=== PATIENT | male | born 1970 | race Caucasian/White ===

== ENCOUNTER 2020-09-20 07:40 | Outpatient (CLI) | payer OTHER, SELFPAY ==
--- NOTE | ~2020-09-20 | XR_ITS ---
EXAMINATION: XR shoulder RT min 2V EXAM DATE: 09/20/2020 08:06 INDICATION: Right shoulder injury, strain, pain. TECHNIQUE: The following right shoulder projections obtained: frontal projection with internal rotati on, frontal projection with external rotation, Grashey, and scapular Y view and axillary (5 views). There is no prior study for comparison. FINDINGS: Calcification superior to the greater tuberosity consistent with calcific tendinosis of t he biceps tendon or rotator cuff. There is mild glenohumeral and acromioclavicular joint primary oste oarthritis. There are no acute fractures or dislocations identified. There is no subcutaneous gas. The soft tissue is unremarkable. There are no radiopaque foreign bodies. IMPRESSION: 1. Right shoulder exam without acute osseous findings. 2. Mild right shoulder osteoarthritis. 3. Calcific tendinosis. Reviewed, dictated and finalized at location A.
== END 2020-09-20 07:41 | disposition home or self-care (01) ==
PROVIDERS: PCP Family Medicine; Visit Provider Family Medicine
DX: M19.011 Primary osteoarthritis, right shoulder (principal)
CPT/HCPCS: 73030

== ENCOUNTER 2024-05-12 09:00 | Outpatient (RCR) | payer OTHER, SELFPAY ==
--- NOTE | 2024-04-20 09:57 | OPREHPOC ---
Outpatient Therapy Plan of Care This is a Multidisciplinary Plan of Care that may contain components documented by all disciplines (PT, OT, and ST.) PT Problem 1 PT Problem #1 Knowledge Deficit PT Goal 1 Goal / Goal Update *indep with HEP Target Visit 5 PT Problem 2 PT Problem #2 Pain PT Goal 1 Goal / Goal Update 1* pt report pain at worst of 10 2* self assessment with LE functional scale rating of 10% limitation in activity level Target Visit 5 PT Problem 3 PT Problem #3 Impaired Strength PT Goal 1 Goal / Goal Update increase strength of L hip and knee to improve patellar tracking 1* pt perform mat exercises with 3# ankle weight x 15 reps Target Visit 5 PT Problem 4 PT Problem #4 Impaired Flexibility PT Goal 1 Goal / Goal Update increase L hip flexibility to improve patellar tracking 1* supine piriformis stretch without reports of tightness 2* side lying on R- L ITB stretch 20' with leg behind body Target Visit 5
--- NOTE | 2024-04-20 09:57 | PTOPEVAL1 ---
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 He reports chronic, intermittent pain with history of patellar subluxation 2x. Also has R knee pain. LE functional scale self rating of 18% limitation in activity level. He is active and walks about 1 hour for fitness. With the evaluation; he has good flexibility of hamstring & anterior hip-quad muscles, with tightness over piriformis and ITB; slight weakness over hip adduction; lateral patellar placement with grinding; Skilled PT services are indicated for therapeutic exercises, to increase hip flexibility and strength, to improve patellar tracking and positioning, with education for HEP. Plan of Care Interventions Hot Pack/Cold Pack,Manual Therapy,Neuro Re- education,Patient Education,Therapeutic Activities,Therapeutic Exercise,Ultrasound,Other Other Interventions taping PT Services Indicated Yes Treatment Frequency and 1-2x/wk for 5 visits Duration These treatments will address the objective and functional deficits as defined above. The patient will be advanced safely and appropriately in order for the patient to progress towards his/her prior level of function. Additional exercises will be introduced and as well as a comprehensive home exercise program upon discharge, if needed, ?to ensure carryover of functional gains achieved in the clinic. This treatment plan has been reviewed and agreement upon by the patient.
--- NOTE | 2024-05-12 09:52 | PTOPDC ---
Assessment and note entered by Zoe Starks, PT Discharge Report Assessment Status Discharge ICD-10 Condition Codes (PT) Pain in left knee M25.562 Onset Feb 2024 Subjective Information knee no longer really have any pain, but sometimes is stiff; have been doing the exercises; Reported Pain Level Pain Score Self Report Additional Pain Score Comments pain range in the past week 0-2/10-- stiff, tight but not pain or hurt Assessment PT Clinical Summary Rachid has received 5 PT sessions. Compared to the initial evaluation: pain rating same at 0-2/10; walking sometimes increases the knee stiffness, tightness; self assessment with LE functional scale rating from 18% to 16% limitation in activity level; tenderness and spasms over medial-distal hamstring; increase strength of L hip and knee with mat and standing exercises; education completed for HEP and posture The goals were partially met. Discharge PT services. He is to continue with his HEP. Plan of Care PT Services Indicated No
== END 2024-05-12 11:17 | disposition home or self-care (01) ==
LOC: ANHPT 09:00
PROVIDERS: PCP Physician Assistant; Visit Provider Physician Assistant
DX: M25.562 Pain in left knee (principal)
CPT/HCPCS: 97110; 97161; 97530

== ENCOUNTER 2025-02-20 08:03 | Outpatient (CLI) | payer OTHER, SELFPAY ==
--- NOTE | ~2025-02-20 | XR_ITS ---
EXAMINATION: XR shoulder RT min 2V DATE: 02/20/2025 08:23 INDICATION: Pain in joint of right shoulder TECHNIQUE: 4 images of the right shoulder were obtained. COMPARISON: None FINDINGS: Bones appear osteopenic. Moderate joint space narrowing in the right acromioclavicular joint. No fracture. No dislocation. There are a few radiopaque densities in the subdeltoid and subacromial bursa, the largest grossly measures 1.5 cm in greatest dimension which may represent calcium from calcific te ndinitis. IMPRESSION: 1. No fracture. No dislocation. 2. Moderate joint space narrowing in the right acromioclavicular joint. 3.There are a few radiopaque densities in the subdeltoid and subacromial bursa, the largest grossly measures 1.5 cm in greatest dimension which may represent calcium from calcific tendinitis. If symptoms persist or worsen, consider a short-term follow-up study or MRI imaging for further assessment. Reviewed, dictated and finalized at location Q. IMPRESSION: 1. No fracture. No dislocation. 2. Moderate joint space narrowing in the right acromioclavicular joint. 3.There are a few radiopaque densities in the subdeltoid and subacromial bursa, the largest grossly measures 1.5 cm in greatest dimension which may represent calcium from calcific tendinitis. If symptoms persist or worsen, consider a short-term follow-up study or MRI marge ging for further assessment.
--- OUTSIDE RECORDS SUMMARY | 2025-02-20 08:08 | XMS_ITS | Encounter Summary ---
Author Organization [facility] Address [address] [place] [address] Phone Care Team Providers Care Insurance Account Specialist Name Role Phone Twila Arevalo DO Unavailable Elsa Howell Primary Care Provider Encounter Details Date Type Department Care Team (Latest Contact Info) Description 07/23/2023 Orders Only [facility] Scanning, Provider Social History Tobacco Use Types Packs/Day Years Used Date Smoking Tobacco: Never Smokeless Tobacco: Never Alcohol Use Standard Drinks/Week Comments Yes 0 (1 standard drink = 0.6 oz pur e alcohol) 1 beverage every 3 months Personal Safety Answer Date Recorded Have you ever been in or are you currently in a harmful physical or emotional relationship or is someone making you feel afraid or unsafe? Denies 10/09/2022 Sex and Gender Information Value Date Recorded Sex Assigned at Male 02/25/2020 10:04 AM CDT Legal Sex Male 12:36 PM CODING SPECIALIST HOME HEALTH Gender Identity Transgender Male 11/20/2019 10:2 1 AM CDT Sexual Orientation Straight 09/25/2019 11 :52 AM CDT documented as of this encounter Plan of Treatment Not on file documented as of this encounter Procedures Procedure Name Priority Date/Time Associated Diagnosis Comments SCAN - LABS 07/23/2023 documented in this encounter Results * SCAN - LABS (07/23/2023) us Provider Scanning Final Result documented in this encounter Visit Diagnoses Not on filedocumented in this encounter Care Teams Insurance Account Specialist Relationship Specialty Start Date End Date Elsa Howell PA [address] [place] [phone] PCP - General Physician Manager Ethics 10/09/22 Twila Arevalo DO [address] [facility] [address] [place] [address] Consulting Physician Endocrinology Diabetes & Metabolism 02/25/20 documented as of this encounter
--- OUTSIDE RECORDS SUMMARY | 2025-02-20 08:08 | XMS_ITS | Clinical Summary ---
Author Organization [facility] Address [address] [place] [address] Care Team Providers Care Water Rights Specialist Name Role Phone Twila Arevalo DO Unavailable [phone] Elsa Howell Primary Care Provider [phone] Allergies No known active allergies Medications multivitamin tabletIndications:V itamin Deficiency Prevention daily. 06/14/19 12 Active aspirin 81 mg chewable tablet Take 1 tablet (81 mg total) by mouth daily Active cetirizine (ZyrTEC) 10 mg tablet Take 1 tablet (10 mg total) by mouth daily Active CALCIUM CARBONATE-VITAMIN D3 ORAL Take 600 mg by mouth daily Active cholecalciferol, vitamin D3, (VITAMIN D3 ORAL) Take 1,000 Units by mouth daily Active lisinopril-hydroCHL OROthiazide (ZESTORETIC) 20-25 mg per tablet TAKE 1 TABLET BY MOUTH DAILY 90 tablet 1 03/17/20 20 Active cyanocobalamin, vitamin B-12, (VITAMIN B-12 ORAL) Take by mouth Active magnesium gluconate 200 mg tabletIndications:h ypomagnesemia Take 1 tablet (200 mg total) by mouth daily Active syringe with needle (BD Luer-Lauryn Syringe) 3 mL 21 gauge x 1 syringe USE TO INJECT TESTOSTERONE EVERY 2 WEEKS 4 each 4 04/06/20 24 Active rosuvastatin (CRESTOR) 40 mg tablet Take 1 tablet (40 mg total) by mouth daily 90 tablet 1 08/15/19 25 026 Active testosterone cypionate (DEPO-TESTOTERONE) 200 mg/mL injection Administer 0.5ml in the muscle every 14 days 2 mL 4 08/19/19 25 Active ezetimibe (ZETIA) 10 mg tabletIndications:M ixed hyperlipidemia Take 1 tablet (10 mg total) by mouth daily 90 tablet 1 10/27/19 25 026 Active sapropterin (KUVAN) 100 mg disintegrating tabletIndications:C lassical phenylketonuria Take 17 tablets (1,700 mg total) by mouth daily 510 tablet 11 12/08/19 25 026 Active metFORMIN XR (GLUCOPHAGE XR) 500 mg 24 hr tablet TAKE 2 TABLETS BY MOUTH TWICE DAILY 120 tablet 4 01/07/20 25 Active Active Problems Problem Noted Date Diagnosed Date [id number] transgender person 01/27/2024 Encounter for screening for malignant neoplasm o f colon 07/27/2020 Internal hemorrhoids 07/26/2020 Prediabetes 07/11/2020 Obesity with body mass index 30 or greater 07/11 Hyperlipidemia 07/11/2020 Hypertensive disorder 06/30/2020 Scar condition and fibrosis of skin 09/25/2011 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 Stricture, urethra 05/23/2007 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 Encounters Date Type Department Care Team Description 01/14/2025 Results Follow-Up [facility] [address] [place] [address] [place] [address] Phenylalanine 01/13/2025 Orders Only [facility] Scanning, Provider 01/06/2025 Orders Only [facility] Endocrinology Metabolism and Lipid [address] [place] [address] Advanced Medicine 13[address] [place] [address] [place] [address] Larisa Pagan RMA 12/04/2024 4:15 PM CDT Lab [facility] [address] [place] [phone] Classical phenylketonuria 12/04/2024 3:00 PM CDT Office Visit [facility] [address] [place] [address] Advanced Medicine 5th [place] [address] [place] [address] Benita Montes NP Classical phenylketonuria (Primary Dx) 12/04/2024 Telephone [facility] Medicine Pediatric Genetics [facility] [address]nd [place] [address] [place] [address] Benita Montes NP Refill from Last 3 Months Immunizations Immunization Administration Dates Next Due Moderna SARS-CoV-2 Monovalent Vaccination (12+ Y RS) 02/15/2022 Surgical History Surgery Date Site/Laterality Comments [place] CYSTOURETHROSCOPY W/INTERNAL URETHROTOMY Cystoscopy With Internal Urethrotomy, Direct Vision - (Added by TW Conv) [place] URETHROPLASTY 1 STG RECNS T MALE ANTERIOR URETHRA Urethroplasty One-Stage Reconstr Of Male Anterior Urethra - (Added by TW Conv) [place] EXC MUCOSA VESTIBULE MOUT H DON GRF Excision Of Mucosa Of Vestibule Of Mouth For Donor Graft - urethroplasty (Added by TW Conv) MASTECTOMY 06/10/1999 - 06/09/2000 Bilateral TOTAL VAGINAL HYSTERECTOMY 06/10/2005 - 06/09/2006 Medical History Medical History Date Comments Hypertension Gender identity disorder Low HDL (under 40) Hypertension Allergic rhinitis Family History Medical History Relation Name Comments No Known Problems Brother Heart disease Father Hyperlipidemia Father Hypertension Father Pancreatic cancer Father Family his tory of pancreatic cancer - (Added by TW Conv)/Family history of pancreatic cancer - (Added by TW Conv) Stroke Mother Relation Name Status Comments Brother Alive Father Mother Social History Tobacco Use Types Packs/Day Years Used Date Smoking Tobacco: Never Smokeless Tobacco: Never Tobacco Cessation:Counseling Given: Not Answered Alcohol Use Standard Drinks/Week Comments Yes 0 [...] AM CDT Legal Sex Male 12:36 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 Gender Identity Transgender Male 11/20/2019 10:2 1 AM CDT Sexual Orientation Straight 09/25/2019 11 :52 AM CDT Obstetrics History Last Filed Vital Signs Vital Sign Reading Time Taken Comments Blood Pressure 97/72 12/04/2024 2:54 PM CDT Pulse 90 12/04/2024 2:54 PM CDT Temperature 36.8 C (98.3 F) 12/04/2024 2:54 PM CDT Respiratory Rate 13 10/09/2022 12:30 PM CDT Oxygen Saturation 100% 07/22/2023 7:39 AM TUBE TEST TECHNICIAN Inhaled Oxygen Concentration - - Weight 81.6 kg (180 lb) 12/04/2024 2:54 PM CDT Height 167.6 cm (5' 6) 12/04/2024 2:54 PM CDT Body Mass Index 29.05 12/04/2024 2:54 PM CDT Plan of Treatment Health Maintenance Due Date Last Done Comments Colon Cancer Screening-Colonoscopy 1972 Depression Screening 1972 Hepatitis C Screening 1972 Prostate Cancer Screening-PSA 1972 Hepatitis B Screening 1990 Regular Well Visit/Exam 18-64 1990 Zoster Vaccine (1 of 2) 2022 Covid-19 Vaccine ( season) 2025 02/15/2022, 02/15/2022, 05/02/2021, Additional history exists Influenza Vaccine (#1) 2025 3, 03/19/2021, 02/20/2020, Additional history exists DTaP/Tdap/Td Vaccine (2 - Td or Tdap) 01/02/2032 01/01/2022 Pneumococcal vaccine <65 Aged Out No longer eligible based on patient's age to complete this topic Procedures Procedure Name Priority Date/Time Associated Diagnosis Comments SCAN - LABS 01/13/2025 PHENYLALANINE Routine 01/08/2025 8:32 AM CDT Classical phenylketonuria VITAMIN D 25 HYDROXY Routine 12/04/2024 4:22 PM CDT Classical phenylketonuria PHENYLALANINE/TYROSIN E Routine 12/04/2024 4:22 PM CDT Classical phenylketonuria from Last 3 Months Results * SCAN - LABS (01/13/2025) us Provider Scanning Final Result * (ABNORMAL) Phenylalanine (01/08/2025 8:32 AM CDT) Phenylalanine 228.7(H) 35.8 - 76.9 umol/L [facility] - 01 Phenylalanine(mg/dL ) 3.8 mg/dL [facility] - 01 Methodology Comment [facility] - Comment:Amino acid concentra tions were obtained by LC-MS/MS analysis. Disclaimer Comment [facility] - 01 Comment: This test was developed and its performance characteristics determined by [facility]. It has not been cleared or approved by the Food and Drug Administration. Blood 01/08/2025 8:32 AM CDT 01/08/2025 Narrative [facility] - 01/13/2025 4:11 PM CDT Test(s) 063447-[id number] was developed and its performance characteristics determined by [facility]. It has not been cleared or approved by the Food and Drug Administration. Performed at: [address] [id number] [employer] Operations Center Engineer: Keyon Steiner MD, Phone: [phone] Benita Montes NP LAB BLOOD ORDERABLES Final Result [facility] - * (ABNORMAL) Phenylalanine/Tyrosine (12/04/2024 4:22 PM CDT) Pathologist [facility] Tyrosine 45 25 - 100 mcmol/L Comment:Testing performed by : [facility], [place]., [address] Phenylalanine 239(H) 30 - 90 mcmol/L [facility] Comment: Interpretive Data This test was developed and its performance characteristics determined by [facility]. It has not been cleared or approved by the U.S. Food and Drug Administration. Current interpretive data was last revised on 2007. Testing performed by: [place]., [address] Blood 12/04/2024 4:22 PM CDT 12/04/2024 5:48 PM CDT Benita Montes WEARING APPAREL ASSEMBLER LAB BLOOD ORDERABLES Final Result [facility] Department [place] [address] * Vitamin D 25 hydroxy (12/04/2024 4:22 PM CDT) Vitamin D 25-OH 79 30 - 80 ng/mL Blood 12/04/2024 4:22 PM CDT 12/04/2024 5:35 PM CDT Benita Gopal Simon WEARING APPAREL ASSEMBLER LAB BLOOD ORDERABLES Final Result Performing Organization Address City/[facility] Co de Phone Number [facility] Department [place] [address] from Last 3 Months [place] [phone] [employer] Care Teams Water Rights Specialist Relationship Specialty Start Date End Date Elsa Howell PA [address] [place] [address] PCP - General Physician Diesel Engine Fitter 10/09/22 Twila Arevalo DO [address] [facility] [address] [place] [address] Consulting Physician Endocrinology Diabetes & Metabolism 02/25/20
== END 2025-02-20 08:04 | disposition home or self-care (01) ==
LOC: ANHIMG 08:05
PROVIDERS: PCP Physician Assistant; Visit Provider Physician Assistant
DX: M25.511 Pain in right shoulder (principal)
CPT/HCPCS: 73030